=== PATIENT | female | born 1965 | race African-American/Black ===

== ENCOUNTER 2025-08-29 10:00 | Emergency (ER) | payer MEDICAID, OTHER ==
[~2025-08-29] VITALS: Ht 165.1 cm; Wt 84.0 kg
[2025-08-29 10:02] VITALS: O2SAT 99
[2025-08-29] MEDS: FAMOTIDINE 20MG TABLET PO ONE (10:23)
[2025-08-29] MEDS: ASPIRIN 81MG TABLET PO ONE (10:23)
[2025-08-29] MEDS: MAGNESIUM HYDROXIDE 400MG/5ML 30ML UDC PO ONE (10:23)
[2025-08-29 10:59] LABS: BASOPHILS % 0.7 % (0.0-2.0); EOSINOPHILS % 1.5 % (0.0-5.0); HEMATOCRIT. 32.4 % (36.0-48.0); HEMOGLOBIN. 10.8 g/dL (12.0-16.0); LYMPHOCYTES % 26.5 % (20.0-50.0); MEAN PLATELET VOLUME 9.2 fl (7.4-10.4); MONOCYTES % 3.7 % (2.0-8.0); NEUTROPHILS % 67.6 % (40.0-76.0); PLATELET 333 x1000/uL (130-400); RED BLOOD CELL COUNT 3.79 mill/uL (4.2-5.4); RED CELL DISTRIBUTION WIDTH 15.6 % (11.6-14.6)
[2025-08-29 11:11] LABS: CREATININE 1.0 mg/dL (0.6-1.0); UREA NITROGEN BLOOD 14 mg/dL (9-23)
[2025-08-29 11:12] LABS: TROPONIN I HIGH SENSITIVITY < 4 ng/L (3.0-34)
[2025-08-29 11:13] LABS: ASPARTATE AMINOTRANSFERASE 17 IU/L (<34); BILIRUBIN DIRECT 0.1 mg/dL (<=3.0)
[2025-08-29 11:14] LABS: BILIRUBIN TOTAL 0.5 mg/dL (0.1-1.0); PROTEIN TOTAL 7.0 g/dL (6.0-8.3)
[2025-08-29] MEDS ORDERED: MAG-55 MT (12:18)
[2025-08-29 13:23] VITALS: BP 142/62; PULSE 70; RESP 18; TEMP 37.2; O2SAT 99
== END 2025-08-29 13:24 | disposition home or self-care (01) ==
LOC: ER 10:00 → CANBEDREQ 12:26 → ER 13:24
DX: K29.60 Other gastritis without bleeding (principal); R07.89 Other chest pain; I10 Essential (primary) hypertension; E78.00 Pure hypercholesterolemia, unspecified; Z79.899 Other long term (current) drug therapy
CPT/HCPCS: 80076; 80048; 83880; 83735; 85025; 84484; 36415; 71045; 93005; 99285; Z7610